=== PATIENT | female | born 1980 | race Caucasian/White ===

== ENCOUNTER 2017-02-13 20:10 | Emergency (ER) | payer SELFPAY ==
[~2017-02-13] VITALS: Ht 162.6 cm; Wt 81.6 kg
[2017-02-13 20:10] VITALS: BP 140/94; PULSE 108; RESP 20; TEMP 98; O2SAT 20; O2SAT 99
[2017-02-13 20:58] LABS: BILIRUBIN,URINE NEGATIVE (NEGATIVE); CLARITY/URINE CLEAR (CLEAR); COLOR,URINE YELLOW (YELLOW); GLUCOSE,URINE NEGATIVE (NEGATIVE); KETONES,URINE NEGATIVE (NEGATIVE); LEUKOCYTE ESTERASE ,URINE NEGATIVE (NEGATIVE); NITRITE, URINE NEGATIVE (NEGATIVE); PH,URINE 5.5 (5.0-8.0); PROTEIN URINE NEGATIVE (NEGATIVE); UROBILINOGEN,URINE 0.2 (0.2-1.0)
[2017-02-13 21:04] LABS: BLOOD, URINE TRACE (NEGATIVE)
[2017-02-13 21:05] LABS: BACTERIA,URINE FEW /HPF (None Seen); RBC,URINE NONE SEEN /HPF (0-3); WBC,URINE 0-3 /HPF (0-3)
[2017-02-13 21:06] LABS: MUCUS,URINE 1+ /LPF (None Seen)
[2017-02-13] MEDS ORDERED: BELLADONNA ALKALOIDS/PHENOBARB 5 ML UDC PO ONE (21:15)
[2017-02-13] MEDS ORDERED: LIDOCAINE VISCOUS 2%, 15 ML UDC MM ONE (21:15)
[2017-02-13] MEDS ORDERED: MAG-AL HYDROX/SIMETH 30 ML UDC PO ONE (21:15)
[2017-02-13 22:25] VITALS: BP 127/81; PULSE 89; RESP 20; TEMP 98; O2SAT 99
== END 2017-02-13 22:25 | disposition home or self-care (01) ==
LOC: SED 20:10
DX: K29.00 Acute gastritis without bleeding (principal); E11.9 Type 2 diabetes mellitus without complications; I10 Essential (primary) hypertension
CPT/HCPCS: 81000; 99283; J2001

== ENCOUNTER 2020-02-29 10:09 | Day surgery (SDC) | payer MEDICAID ==
[~2020-02-29] VITALS: Ht 165.1 cm; Wt 81.6 kg
[2020-02-29 11:35] LABS: BASOPHILS % (AUTO) 0.3 % (0.0-2.0); EOSINOPHILS # (AUTO) 0.1 K/uL (0.0-0.4); EOSINOPHILS % (AUTO) 2.4 % (0.0-4.0); HEMOGLOBIN 13.2 g/dL (12.0-16.0); LYMPHOCYTES # (AUTO) 1.5 K/uL (1.0-5.5); LYMPHOCYTES % (AUTO) 23.8 % (20.5-51.5); MEAN CORPUSCULAR HEMOGLOBIN 29 pg (27-31); MEAN CORPUSCULAR HGB CONC 34 % (32-36); MEAN CORPUSCULAR VOLUME 84 fL (79.0-98.0); MONOCYTES # (AUTO) 0.4 K/uL (0.0-1.0); MONOCYTES % (AUTO) 6.1 % (1.7-9.3); NEUTROPHILS # (AUTO) 4.1 K/uL (1.8-7.7); NEUTROPHILS % (AUTO) 67.4 % (40.0-70.0); PLATELET COUNT (AUTO) 297 K/uL (130-430); RED BLOOD CELL COUNT(AUTO) 4.62 MIL/uL (4.2-6.2); RED CELL DISTRIBUTION WIDTH 14.2 % (9.0-15.0); WHITE BLOOD COUNT (AUTO) 6.1 K/uL (4.8-10.8)
[2020-02-29] MEDS ORDERED: ONDANSETRON HCL 4 MG/2 ML VIAL IVP ONE (13:30)
[2020-02-29] MEDS ORDERED: HYDROcodone/ACETAMIN 5-325 MG TAB (NORCO/ VICODIN) PO PRN (13:30)
[2020-02-29] MEDS ORDERED: LR 1,000 ML IV SCH (13:59)
[2020-02-29] MEDS ORDERED: LABETALOL 100 MG/ 20ML VIAL IVP PRN (14:00)
[2020-02-29] MEDS ORDERED: hydrALAZINE HCL 20 MG/ML VIAL IVP PRN (14:00)
[2020-02-29] MEDS ORDERED: METOCLOPRAMIDE HCL 10 MG/2 ML VIAL IVP PRN (14:00)
[2020-02-29] MEDS ORDERED: ONDANSETRON HCL 4 MG/2 ML VIAL IVP PRN (14:00)
[2020-02-29] MEDS ORDERED: ePHEDrine sulfate 50 MG/ML VIAL IVP PRN (14:00)
[2020-02-29] MEDS ORDERED: KETOROLAC TROMETHAMINE 30 MG VIAL IVP PRN (14:00)
[2020-02-29] MEDS ORDERED: MORPHINE 4 MG/ML INJ. SYRINGE IVP PRN ×2 (14:00)
[2020-02-29] MEDS ORDERED: SEVOFLURANE 15 MIN GAS INH ONE (14:01)
[2020-02-29] MEDS ORDERED: LR 1,000 ML IV.SOLN IV ONE (14:01)
[2020-02-29] MEDS ORDERED: MIDAZOLAM HCL 5 MG/ML VIAL (VERSED) IV ONE (14:01)
[2020-02-29] MEDS ORDERED: fentaNYL CITRATE/PF 100 MCG/2 ML AMP ONE (14:01)
[2020-02-29] MEDS ORDERED: PROPOFOL 200MG/ 20ML VIAL (DIPRIVAN) IV ONE (14:01)
[2020-02-29] MEDS ORDERED: NS IRRIG SOLN 1000 ML IR ONE (14:01)
[2020-02-29 14:40] VITALS: BP_SYST 110
== END 2020-02-29 16:15 | disposition home or self-care (01) ==
LOC: SDS 10:09
PROVIDERS: ATTEND Obstetrics & Gynecology
DX: O02.1 Missed abortion (principal); I10 Essential (primary) hypertension; E11.9 Type 2 diabetes mellitus without complications
CPT/HCPCS: 36415; 59820; 85025; 88304; J2250; J2704; J3010; J7120; 88305